=== PATIENT | female | born 1965 | race Caucasian/White ===

== ENCOUNTER 2020-12-09 11:45 | Outpatient (CLI) | payer OTHER ==
--- NOTE | 2020-12-09 16:33 | Ultrasound Report ---
PROCEDURE: Head or Neck Soft Tissue INDICATIONS: MULTINODULAR GOITER TECHNIQUE: Real-time scanning was performed of the thyroid gland, with image documentation. COMPARISON: Thyroid ultrasound 03/13/2016 FINDINGS: Right: Thyroid lobe measures 4.6 x 0.9 x 1.3 cm, and is homogeneous in echotexture. Left: Thyroid lobe measures 5.3 x 1.1 x 1.5 cm, and is homogenous in echotexture. Isthmus: 5 mm thick. Nodule number: One Location: Left lower pole Size: 2.2 x 1.1 x 1.5 m compared to 1.8 x 0.8 x 1.2 cm cm. Composition: Solid Echogenicity: Hypoechoic Shape: Wider than tall. Margins: Smooth Echogenic foci: None Total points: 4 ACR TI-RADS category: 4 Nodule number: Two Location: Inferior right isthmus Size: 0.7 x 0.3 x 0.5 cm. Composition: Predominantly cystic Echogenicity: Anechoic Shape: wider than tall. Margins: Smooth Echogenic foci: None Total points: 0 ACR TI-RADS category: 1 IMPRESSION: 1. Interval increase in size of category 4 lesion compared to prior exam. Fine-needle aspiration is r ecommended. 2. New category 1 isthmus lesion. Secondary to characteristics, no additional follow-up is recommende d as below. ACR TI-RADS definitions and recommendations: TI-RADS 1 (benign): 0 points. FNA not needed. TI-RADS 2 (not suspicious): 2 points. FNA not needed. TI-RADS 3 (mildly suspicious): 3 points. ? FNA if 2.5 cm or larger, follow up if 1.5 cm or larger (at 1, 3, and 5 years). TI-RADS 4 (moderately suspicious): 4-6 points. ? FNA if 1.5 cm or larger, follow up if 1 cm or larger (at 1, 2, 3, and 5 years). TI-RADS 5 (highly suspicious): 7 points or more. ? FNA if 1 cm or larger, follow up if 0.5 cm or larger (every year for 5 years). Reviewed by: Tracey Gallagher MD on 12/09/2020 4:32 PM PDT Approved by: Tracey Gallagher MD on 12/09/2020 4:32 PM PDT Station ID: [id number]
== END 2020-12-09 11:46 | disposition home or self-care (01) ==
LOC: DI 11:45
PROVIDERS: ATTEND Registered Nurse
DX: E04.2 Nontoxic multinodular goiter (principal)